=== PATIENT | female | born 1990 | race Caucasian/White ===

== ENCOUNTER 2019-04-16 03:24 | Observation (INO) | payer MEDICAID ==
[~2019-04-16] VITALS: Ht 170.2 cm; Wt 55.3 kg
[2019-04-16] MEDS ORDERED: PRENATAL VITAMINS (04:20)
[2019-04-16] MEDS ORDERED: TOPUD PO (04:20)
== END 2019-04-16 05:00 | disposition home or self-care (01) ==
LOC: 8 EST LDRP 03:24
PROVIDERS: ADMIT Obstetrics & Gynecology; ATTEND Obstetrics & Gynecology
DX: O99.512 Diseases of the respiratory system complicating pregnancy, second trimester (principal); J02.9 Acute pharyngitis, unspecified; R51 Headache; R09.81 Nasal congestion; Z3A.22 22 weeks gestation of pregnancy
CPT/HCPCS: 99281; G0378

== ENCOUNTER 2019-04-16 05:18 | Emergency (ER) | payer MEDICAID ==
[~2019-04-16] VITALS: Ht 172.7 cm; Wt 56.0 kg
[~2019-04-16 05:18] MED LIST: PRENATAL VITAMINS; TOPUD PO
[2019-04-16] MEDS ORDERED: ACETAMINOPHEN 325MG TABLET PO ONE (05:45)
[2019-04-16 06:51] VITALS: BP 116/73
== END 2019-04-16 07:02 | disposition home or self-care (01) ==
LOC: ER 05:18
DX: O26.892 Other specified pregnancy related conditions, second trimester (principal); R09.81 Nasal congestion; R05 Cough; Z3A.22 22 weeks gestation of pregnancy
CPT/HCPCS: 87804; 99283